=== PATIENT | female | born 1975 | race Two or more races ===

== ENCOUNTER 2023-08-15 11:41 | Outpatient (AMB) | payer MEDICARE, MEDICAID, SELFPAY ==
--- NOTE | 2023-08-15 11:43 | A.OFFVIS_ITS ---
Intake Vital Signs 08/15/23 11:47 Height 5 ft 1 in Weight 146 lb 4 oz BMI 27.6 BP 97/68 Blood Pressure Location Rt brachial Position Sitting Pulse 89 Pulse Source Pulse Oximeter Pulse Oximetry (%) 100 Oxygen Delivery Method Room Air Intake Visit Reasons: Follow up for Headaches-Confirmed Intake Note: Patient present today for headache follow up visit. Patient complains of increase forgetfulness. 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 Pt last seen by me in 2020 at [facility]. She had Covid-19 a second time, about a yr ago. Pt reports she is having increased difficulty with her memory. She needs help to take her medications, keep track of her appointments so she does not miss them. She states she is not recalling things she needs to do, just forgetting a lot of things. She does not recall anything specifically that has worsened her cognition. She states she never learned to write well, never completed school as she could never remember well. She is living with her son and dtr. She is having 3-4 days with headache, which lasts hours. The pain is in her temples and back of her head. The headache is a/w photophobia, phonophobia, some dizziness. Ibuprofen does not help. [facility] Medical History (Updated 08/15/23 @ 13:11 by TOSHA Hopkins) Anxiety Depression Lumbar spondylosis Review of Systems Const All systems reviewed & are unremarkable except as noted in HPI and below Physical Exam Vital Signs: Last Vital Signs Pulse 89 08/15/23 11:47 BP 97/68 08/15/23 11:47 Pulse Ox 100 08/15/23 11:47 Oxygen Delivery Method Room Air 08/15/23 11:47 BMI result Body Mass Index 27.6 Const General: cooperative and no acute distress HEENT Head: Yes normocephalic Resp Effort & Inspection: normal respiratory effort and able to speak in complete sentences Neuro Other: A&O, however on MMSE pt stated date was 08/14 vs 08/15, we are in [place] vs [place], 2nd floor vs 3rd. General: gait normal and CN's II-XI intact bilaterally Cognition (Neuro): normal cognition Motor exam (neuro): 5/5 motor strength present throughout Psych Appearance: grossly normal Mental Status: mental status grossly normal Speech and movement: Normal speech and movement present Affect: normal affect Attitude: cooperative Thought process: Normal thought process present Thought content: Normal thought content present Insight: Good insight present (Psych) Judgement: Good judgement present (Psych) Orientation What is the (year) (season) (date) (day) (month)?: year, date, day and month Where are we (state) (county) (town or city) (hospital) (floor)?: county, town or city and hospital/clinic Registration Name of 3 unrelated objects clearly and slowly, then ask patient to repeat all 3 of them. (1st repeat determines score. Make sure they can repeat all three): object 2 and object 3 Language Show patient a wristwatch & ask what it is. Repeat for pencil.: watch and pencil Ask the patient to 'take a piece of paper with their right hand' 'fold paper in half' 'place paper on floor': take paper in right hand, fold paper in half and place paper on floor Print the sentence 'CLOSE YOUR EYES' on a piece. If patient actually closes eyes then score.: followed written direction Give patient a blank piece of paper & ask to write a sentence. Score if it contains a noun & verb.: sentence contains subject and verb Score Score: 16 Assessment & Plan Assessment & Plan (1) Cognitive dysfunction: Code(s): F09 - Unspecified mental disorder due to known physiological condition (2) Limited literacy: Code(s): Z55.0 - Illiteracy and low-level literacy (3) Headache: Code(s): R51.9 - Headache, unspecified Plan MMSE 16 (repeat phrase omitted d/t Swedish speaking). Discussed that pt's cognitive difficulties may be multi-factorial- ? undiagnosed learning disorder, ? ADD, polypharmacy, mood disorder, pain/headache disorders. As pt is reporting more cognitive diffiuclties, will request f/u neuro-psych eval- last eval in 2019 was non-diagnostic as results were not deemed to be valid. For headache: Continue Amitriptyline 50mg qhs. Trial Sumatriptan 50-100mg prn. f/u in 6 months or sooner prn. Orders: Referrals Neuropsychiatry Referral F09 - Unspecified mental disorder due to known physiological condition, F32.A - Depression, unspecified, F41.9 - Anxiety disorder, unspecified, Z55.0 - Illiteracy and low-level literacy Medications: New sumatriptan succinate (0.5 - 1 x 100 mg) 50 - 100 mg orally at onset of headache, may repeat in 2 hrs PRN; max 2 tabs per day or 4 tabs/week (may take with Ibuprofen) 30 days 12 tabs 6RF migraine headache Coding Level of Care Code Est Pt Level 4 (51449) Diagnoses Cognitive dysfunction F09 Limited literacy Z55.0 Headache R51.9
[2023-08-15 11:47] VITALS: BP 97/68; PULSE 89; O2SAT 100; BMI 27.6
== END 2023-08-15 12:32 | disposition home or self-care (01) ==
PROVIDERS: Visit Provider Nurse Practitioner Family
DX: R41.89 Other symptoms and signs involving cognitive functions and awareness (principal); G44.201 Tension-type headache, unspecified, intractable; Z55.0 Illiteracy and low-level literacy
CPT/HCPCS: 99214

== ENCOUNTER → 2023-08-15 11:41 | Outpatient (BNVA) | payer MEDICARE, MEDICAID, SELFPAY | PROVIDERS: Visit Provider Nurse Practitioner Family | DX: F09 Unspecified mental disorder due to known physiological condition (principal); R51.9 Headache, unspecified; Z55.0 Illiteracy and low-level literacy | CPT/HCPCS: 99212 ==

== ENCOUNTER 2024-08-17 13:02 | Outpatient (REF) | payer MEDICARE, MEDICAID, SELFPAY | END 2024-08-17 13:03 | disposition home or self-care (01) | LOC: HO.HOSX 13:02 | PROVIDERS: Visit Provider Physician Assistant | DX: Z13.89 Encounter for screening for other disorder (principal) ==

== ENCOUNTER 2024-08-26 15:00 | Outpatient (AMB) | payer MEDICARE, MEDICAID, SELFPAY ==
--- NOTE | 2024-08-26 15:11 | MHC.OFFVIS ---
Vital Signs 08/26/24 15:15 Height 5 ft 1 in Weight 142 lb BMI 26.8 BP 98/68 Blood Pressure Location Lt brachial Position Sitting Pulse 79 Pulse Source Pulse Oximeter Pulse Oximetry (%) 100 Oxygen Delivery Method Room Air Intake Visit Reasons: Follow Up Safety And Health Consultant Required: No Accompanied by: Self / Same As Patient Allergies No Known Allergies Allergy (Verified 08/26/24 15:15) Medication List - Last Reconciled 08/26/24 by TOSHA Hopkins amitriptyline 50 mg PO BEDTIME doxepin 25 mg PO BEDTIME mirtazapine 15 mg PO BEDTIME sumatriptan succinate 50 - 100 mg orally at onset of headache, may repeat in 2 hrs PRN; max 2 tabs per day or 4 tabs/week (may take with Ibuprofen) 30 days trazodone 100 mg PO BEDTIME PRN Do you need a note to return to daycare/school/sports/work: No HPI Comments Details: 49-yr-old female presents for f/u visit, presents for f/u visit. Pt reports she has had more difficulty sleeping. She states sometimes she is prone to ruminating. She states she used to take a sleeping pill which helped- she states amitriptyline. She states she is not taking mirtazapine or doxepin. She also notes that she is post-menopausal x's 2.5 yrs- continues to have vasomotor s/s. She is f/b [facility] for her mood- which she states is stable. Pt reports she continues to have difficulties with her memory. S She needs help with anything written, to take her medications, keep track of her appointments so she does not miss them. She states she is not recalling things she needs to do, just forgetting a lot of things. She states she never learned to write well, never completed school as she could never remember well. She is living with her son and dtr. She is having 3-4 days with headache per week, which lasts hours. The pain is throbbing in her temples and back of her head. The headache is a/w photophobia, phonophobia, some dizziness. Ibuprofen does not help much. Sumatriptan was helpful- but needs a refill. She has had interval eye exam- states she has cataracts, and may need surgical tx. [facility] Medical History Anxiety Depression Lumbar spondylosis Physical Exam Vital Signs: Last Vital Signs Pulse 79 08/26/24 15:15 BP 98/68 08/26/24 15:15 Pulse Ox 100 08/26/24 15:15 Oxygen Delivery Method Room Air 08/26/24 15:15 BMI result Body Mass Index 26.8 Const General: cooperative and no acute distress HEENT Head: Yes normocephalic Resp Effort & Inspection: normal respiratory effort and able to speak in complete sentences Neuro Other: A&O w/ mild STM lapses General: gait normal and CN's II-XI intact bilaterally Cognition (Neuro): normal cognition Motor exam (neuro): 5/5 motor strength present throughout Psych Appearance: grossly normal Mental Status: mental status grossly normal Speech and movement: Normal speech and movement present Affect: normal affect Attitude: cooperative Assessment & Plan Assessment & Plan (1) Cognitive dysfunction: Code(s): F09 - Unspecified mental disorder due to known physiological condition Category: Medical (2) Limited literacy: Code(s): Z55.0 - Illiteracy and low-level literacy Category: Social Hx (3) Headache: Code(s): R51.9 - Headache, unspecified Category: Medical Plan For cognition- Continue to f/u Jeremy as scheduled. For migraine headache: Resume Amitriptyline at 25mg qhs- may help sleep and body pains as well. If ineffective, increase back to 50mg. Continue Sumatriptan 50-100mg prn. f/u in 6 months or sooner prn. Medications: New amitriptyline 25 mg PO BEDTIME 30 days 30 tabs 3RF Refilled sumatriptan succinate (0.5 - 1 x 100 mg) 50 - 100 mg orally at onset of headache, may repeat in 2 hrs PRN; max 2 tabs per day or 4 tabs/week (may take with Ibuprofen) 30 days 12 tabs 6RF migraine headache Coding Level of Care Code Est Pt Level 4 (27664) Diagnoses Cognitive dysfunction F09 Limited literacy Z55.0 Headache R51.9
[2024-08-26 15:15] VITALS: BP 98/68; PULSE 79; O2SAT 100; BMI 26.8
== END 2024-08-26 15:52 | disposition home or self-care (01) ==
LOC: HO.HSMS 15:00
PROVIDERS: Visit Provider Nurse Practitioner Family
DX: R41.89 Other symptoms and signs involving cognitive functions and awareness (principal); R51.9 Headache, unspecified; Z55.0 Illiteracy and low-level literacy
CPT/HCPCS: 99214

== ENCOUNTER → 2024-08-26 15:00 | Outpatient (BNVA) | payer MEDICARE, MEDICAID, SELFPAY | PROVIDERS: Visit Provider Nurse Practitioner Family | DX: F09 Unspecified mental disorder due to known physiological condition (principal); R41.89 Other symptoms and signs involving cognitive functions and awareness; R51.9 Headache, unspecified; Z55.9 Problems related to education and literacy, unspecified | CPT/HCPCS: 99212 ==

== ENCOUNTER 2024-09-23 09:18 | Outpatient (REF) | payer MEDICARE, MEDICAID, SELFPAY | END 2024-09-23 09:19 | disposition home or self-care (01) | LOC: HO.HOSX 09:18 | PROVIDERS: Visit Provider Physician Assistant | DX: Z13.89 Encounter for screening for other disorder (principal) ==

== ENCOUNTER 2024-11-01 09:22 | Outpatient (REF) | payer MEDICARE, MEDICAID, SELFPAY ==
--- NOTE | ~2024-11-01 | XR_ITS ---
CLINICAL HISTORY: M17.11 - Unilateral primary osteoarthritis, right knee AP standing bilateral and two-view right knee Comparison: DX - XR KNEE LT 3V - 11/01/24 10:46 EST Findings: No significant osteophyte formation. No fracture. There appears to be mild lateral subluxation of the tibia in relation to the knee joint. Joint spaces appear relatively well maintained. IMPRESSION: 1. Slight lateral subluxation of the tibia without significant osteophyte formation or joint space loss. This document has been electronically signed by: Batsheva Richardson MD on 11/03/2024 06:50:23
--- NOTE | ~2024-11-01 | XR_ITS ---
CLINICAL HISTORY: M25.562 - Pain in left knee 3 view left knee Comparison: None Findings: No fracture or aggressive lesion. No joint effusion. Medial compartment joint space loss with subchondral sclerosis and mild lateral subluxation. IMPRESSION: 1. Medial compartment degenerative changes with mild lateral subluxation. This document has been electronically signed by: Batsheva Richardson MD on 11/03/2024 06:50:53
== END 2024-11-01 09:23 | disposition home or self-care (01) ==
LOC: HO.HOSX 09:22
PROVIDERS: Visit Provider Physician Assistant
DX: M17.11 Unilateral primary osteoarthritis, right knee (principal); M25.562 Pain in left knee; M25.561 Pain in right knee
CPT/HCPCS: 73562; 99202

== ENCOUNTER 2024-11-01 10:37 | Outpatient (AMB) | payer MEDICARE, MEDICAID, SELFPAY ==
[2024-11-01 10:54] VITALS: BMI 26.8
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
== END 2024-11-01 11:38 | disposition home or self-care (01) ==
PROVIDERS: Visit Provider Physician Assistant
DX: M17.0 Bilateral primary osteoarthritis of knee (principal); M92.50 Unspecified juvenile osteochondrosis of tibia and fibula
CPT/HCPCS: 99203; G2211

== ENCOUNTER 2024-11-04 19:23 | Outpatient (REF) | payer MEDICARE, MEDICAID, SELFPAY ==
--- NOTE | ~2024-11-04 | MR_ITS ---
EXAMINATION: MRI LEFT KNEE WITHOUT CONTRAST HISTORY: M17.12 - Unilateral primary osteoarthritis, left knee COMPARISON: Correlation is made with plain films of the left knee dated 11/01/2024. TECHNIQUE: Coronal T1 and fat-suppressed proton density, sagittal proton density and fat-suppressed proton density, and axial fat suppressed T2 weighted MR images of the left knee were obtained. FINDINGS: There is a focus of magnetic susceptibility artifact at the posterior aspect of the medial tibial plateau, which is likely postsurgical in nature. Bone marrow signal intensity is normal. There is a small suprapatellar joint effusion. There is no Christie's cyst. There is moderate cartilage loss involving the medial compartment with associated small osteophyte formation. There is thinning of the patellar cartilage, particularly involving the medial patellar facet. The anterior and posterior cruciate ligaments and medial and lateral collateral ligaments are intact. The posterior horn of the medial meniscus is diminutive in size and slightly irregular in shape, which may be postsurgical in nature. There is a horizontally oriented linear focus of increased signal intensity in the posterior body which contacts the inferior joint surface, compatible with a tear. There is increased signal intensity within the anterior horn of the lateral meniscus, consistent with degeneration. This appears to contact the inferior joint surface, suspicious for a tear. The posterior horn of the lateral meniscus is intact. The patellar and quadriceps tendons and patellar retinacula are unremarkable in appearance. The popliteus tendon is intact. MR/MR knee LT wo con IMPRESSION: 1. Small joint effusion. Moderate osteoarthritis of the medial compartment. Mild to moderate osteoarthritis of the patellofemoral compartment. 2. Probable postsurgical changes involving the posterior horn of the medial meniscus. Clinical correlation is recommended. Findings consistent with a horizontal tear of the posterior body of the medial meniscus. 3. Degenerative change in the anterior horn of the lateral meniscus with a probable tear as described. Electronically signed by: Oleksandr Irene MD 11/05/2024 08:16 AM [facility]
--- NOTE | ~2024-11-04 | MR_ITS ---
CLINICAL HISTORY: M17.11 - Unilateral primary osteoarthritis, right knee MR right knee without gadolinium Comparison: None Findings: No acute fracture or pathologic bone lesion. Moderate-size simple joint effusion . There is increased signal in the anteromedial bundle of the ACL suggesting a partial-thickness tear. Cruciate and collateral ligaments are otherwise intact. No disruption of the patellar retinacula or iliotibial band. No tears of the quadriceps, patellar, popliteus, or flexor tendons. There is a tear of the posterior horn medial meniscus extending from the periphery to the inferior articular surface peripherally. The menisci are otherwise intact. There is a small Christie's cyst with edema extending cephalad raising possibility of cyst rupture. IMPRESSION: 1. Posterior horn medial meniscal tear. 2. Partial-thickness ACL tear. 3. Possible ruptured Christie's cyst. This document has been electronically signed by: Pa Casper MD on 11/06/2024 08:19:55
== END 2024-11-04 19:24 | disposition home or self-care (01) ==
LOC: HO.MRI 19:23
PROVIDERS: Visit Provider Physician Assistant
DX: M17.12 Unilateral primary osteoarthritis, left knee (principal); M17.11 Unilateral primary osteoarthritis, right knee
CPT/HCPCS: 73721

== ENCOUNTER → 2024-11-04 19:32 | Outpatient (BNV) | payer MEDICARE, MEDICAID, SELFPAY | PROVIDERS: Visit Provider Radiology Diagnostic Radiology | DX: M17.12 Unilateral primary osteoarthritis, left knee (principal) | CPT/HCPCS: 73721 ==

== ENCOUNTER 2024-12-28 13:52 | Outpatient (AMB) | payer MEDICARE, MEDICAID, SELFPAY ==
--- NOTE | 2024-12-28 13:57 | A.OFFVIS_ITS ---
Intake Visit Reasons: Tel- B/L knee MRI review Intake Note: Katja 49 yr old Citizen Of [place] speaker female presents via phone call for a telehealth visit for her knee MRI. Allergies No Known Allergies Allergy (Verified 11/01/24 10:54) Medication List - Last Reconciled 12/28/24 by Ari Levy PA-C amitriptyline 25 mg PO BEDTIME 30 days doxepin 25 mg PO BEDTIME mirtazapine 15 mg PO BEDTIME sumatriptan succinate 50 - 100 mg orally at onset of headache, may repeat in 2 hrs PRN; max 2 tabs per day or 4 tabs/week (may take with Ibuprofen) 30 days trazodone 100 mg PO BEDTIME PRN HPI HPI Tel- B/L knee MRI review: Details: 49 yo female presents for telehealth visit bilat knee MRI. She continues to have pain with daily activities, right worse than left. The right she feels like it will give out. She was measured for medial scientific diver braces. but has yet to receive them. 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 Review of Systems Const All systems reviewed & are unremarkable except as noted in HPI and below Physical Exam Resp Effort & Inspection: normal respiratory effort and able to speak in complete sentences Telehealth Telehealth Telehealth Platform: Telephone Location of provider rendering services: practice address Location of patient: address on file Telehealth method: voice only Patient verbally consented to treatment: Yes Patient verbally consented to billing insurance company: Yes Patient informed of any privacy concerns related to visit: Yes Minutes spent on Phone/Video with Pt.: 15 Results Reviewed Results Reviewed: MRI RIght knee IMPRESSION: 1. Posterior horn medial meniscal tear. 2. Partial-thickness ACL tear. 3. Possible ruptured Christie's cyst. MR knee LT wo con IMPRESSION: 1. Small joint effusion. Moderate osteoarthritis of the medial compartment. Mild to moderate osteoarthritis of the patellofemoral compartment. 2. Probable postsurgical changes involving the posterior horn of the medial meniscus. Clinical correlation is recommended. Findings consistent with a horizontal tear of the posterior body of the medial meniscus. 3. Degenerative change in the anterior horn of the lateral meniscus with a probable tear as described. Assessment & Plan Assessment & Plan (1) Osteoarthritis of knees, bilateral: Code(s): M17.0 - Bilateral primary osteoarthritis of knee Category: Medical (2) Varus deformity of both tibias: Code(s): M92.503 - Unspecified juvenile osteochondrosis, bilateral leg Category: Medical Plan I discussed the extent of the findings on MRI with the patient. She continues to express her frustration with her continued pain and limitations with activity. She states it is causing her to feel depressed about where she is at and how limited she feels being unable to carry on with her life due to the pain. I explained to the patient I will discuss further with Dr. Vazquez to see what options we have whether it be continued nonsurgical versus surgical approach. Patient is content with this plan and I will contact her to proceed. Coding Level of Care Code Tele Est Pt Level 3 (16746) Complex EM visit Add On G2211 Diagnoses Osteoarthritis of knees, bilateral M17.0 Varus deformity of both tibias M92.503
--- OUTSIDE RECORDS SUMMARY | 2024-12-28 16:52 | XMS_ITS | Clinical Summary ---
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 Name Role Phone Unavailable Primary Care Provider Unavailabl e Social History Tobacco Use Types Packs/Day Years Used Date Smoking Tobacco: Never Assessed Comments Unknown Sex and Gender Information Value Date Recorded Sex Assigned at Not on file Legal Sex Female 10:52 AM EST Gender Identity Not on file Sexual Orientation Not on file Plan of Treatment Health Maintenance Due Date Last Done Comments Breast Cancer Screening 1975 DTaP,Tdap,and Td Vaccines (1 - Tdap) 1994 Hepatitis B Vaccines (1 of 3 - 19+ 3-dose series) 1994 Cervical Cancer Screening: P ap Smear 1996 Colorectal Cancer Screening: Colonoscopy 09/17/2022 Depression Screening 09/17/2022 HIV Screening 09/17/2022 Hepatitis C Screening 09/17/2022 Social Influencers of Health Screening 09/17/2022 COVID-19 Vaccine (2023-2 5 season) 2024 Influenza Vaccine (#1) 2024 HIB Vaccines Aged Out No longer eligi ble based on patient's age to complete this topic HPV Vaccines Aged Out No longer eligi ble based on patient's age to complete this topic Hepatitis A Vaccines Aged Out No long er eligible based on patient's age to complete this topic IPV Vaccines Aged Out No longer eligi ble based on patient's age to complete this topic MMR Vaccines Aged Out No longer eligi ble based on patient's age to complete this topic Meningococcal ACWY Vaccine Aged Out N o longer eligible based on patient's age to complete this topic Meningococcal B Vacine Aged Out No lo nger eligible based on patient's age to complete this topic Pneumococcal Vaccine: Pediat rics (0 to 5 Years) and At-Risk Patients (6 to 64 Years) Aged Out No longer eligible b ased on patient's age to complete this topic RSV Immunization Patients Un rosa elena 20 months Aged Out No longer eligible b ased on patient's age to complete this topic Varicella Vaccines Aged Out No longer eligible based on patient's age to complete this topic
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
== END 2024-12-28 14:29 | disposition home or self-care (01) ==
LOC: HO.HOS 13:52
PROVIDERS: Visit Provider Physician Assistant
DX: M17.0 Bilateral primary osteoarthritis of knee (principal); M92.50 Unspecified juvenile osteochondrosis of tibia and fibula
CPT/HCPCS: 99213; G2211

== ENCOUNTER 2025-01-17 13:10 | Outpatient (AMB) | payer MEDICARE, MEDICAID, SELFPAY ==
[2025-01-17 13:14] VITALS: BMI 26.8
--- NOTE | 2025-01-17 13:14 | A.OFFVIS_ITS ---
Vital Signs 01/17/25 13:14 Height 5 ft 1 in Weight 142 lb BMI 26.8 Intake Visit Reasons: OV- B/L knee pain f/u Intake Note: Katja is a 49 year old female who presents today for a follow up of bilateral knee OA. Patient is here to discuss her options, whether continued nonsurgical versus surgical approach. Allergies No Known Allergies Allergy (Verified 01/17/25 13:14) Medication List - Last Reconciled 01/17/25 by Ari Levy PA-C amitriptyline 25 mg PO BEDTIME 30 days doxepin 25 mg PO BEDTIME mirtazapine 15 mg PO BEDTIME sumatriptan succinate 50 - 100 mg orally at onset of headache, may repeat in 2 hrs PRN; max 2 tabs per day or 4 tabs/week (may take with Ibuprofen) 30 days trazodone 100 mg PO BEDTIME PRN HPI HPI OV- B/L knee pain f/u: Details: 49-year-old female returns to the office today for ongoing bilateral knee pain right greater than left. She continues to have medial and lateral-sided joint pain and instability when ambulating. 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 No joint effusion. She has full range of motion. She has varus deformity. She has 1+ laxity bilaterally. Neurovascularly intact Assessment & Plan Assessment & Plan (1) Osteoarthritis of knees, bilateral: Code(s): M17.0 - Bilateral primary osteoarthritis of knee Category: Medical (2) Varus deformity of both tibias: Code(s): M92.503 - Unspecified juvenile osteochondrosis, bilateral leg Category: Medical Plan Dr. Vazquez was available to see the patient with me today. We discussed options today which include arthroscopic versus total knee arthroplasty. Given that she has had prior surgery elsewhere it would be ideal to have those operative notes before proceeding with a definitive treatment course. Once these are obtained we will contact her to discuss the next step in her treatment. Coding Level of Care Code Est Pt Level 3 (52117) Complex EM visit Add On G2211 Diagnoses Osteoarthritis of knees, bilateral M17.0 Varus deformity of both tibias M92.503
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
--- OUTSIDE RECORDS SUMMARY | 2025-01-17 14:52 | XMS_ITS | Clinical Summary ---
Author Organization [employer] [facility] ity Address [address] [place] [address] Care Team Providers Care Scaler Name Role Phone Unavailable Primary Care Provider Unavailabl e Social History Tobacco Use Types Packs/Day Years Used Date Smoking Tobacco: Never Assessed Comments Unknown Sex and Gender Information Value Date Recorded Sex Assigned at Not on file Legal Sex Female 10:52 AM EST Gender Identity Not on file Sexual Orientation Not on file Plan of Treatment Health Maintenance Due Date Last Done Comments Hepatitis B Vaccines (1 of 3 - 19+ 3-dose series) 1994 Cervical Cancer Screening: Pap Smear 1996 Colorectal Cancer Screening: Colonoscopy 09/17/2022 Social Influencers of Health Screening 09/17/2022 COVID-19 Vaccine ( season) 2024 09/06/2021, 08/16/2021 Influenza Vaccine (#1) 2024 08/07/2021 Depression Screening 07/14/2025 07/14/2024 Breast Cancer Screening 12/24/2025 12/25/2023 Cholesterol Screening (Lipid Panel) 07/14/2029 07/14/2024, 07/14/2024, 03/27/2023, Additional history exists DTaP,Tdap,and Td Vaccines (3 - Td or Tdap) 01/01/2032 12/31/2021, 08/07/2021 HIV Screening Completed 04/08/2019 Hepatitis C Screening Completed 03/29/2021 Pneumococcal Vaccine: Pediatrics (0 to 5 Years) and At-Risk Patients (6 to 64 Years) Aged Out 08/07/2021 No longer eligible based on patient's age to complete this topic HIB Vaccines Aged Out No longer eligi [...] to complete this topic RSV Immunization Patients Under 20 months Aged Out No longer eligible based on patient's age to complete this topic Varicella Vaccines Aged Out No longer eligible based on patient's age to complete this topic
== END 2025-01-17 13:38 | disposition home or self-care (01) ==
LOC: HO.HOS 13:11
PROVIDERS: Visit Provider Physician Assistant
DX: M17.0 Bilateral primary osteoarthritis of knee (principal); M92.50 Unspecified juvenile osteochondrosis of tibia and fibula
CPT/HCPCS: 99213; G2211

== ENCOUNTER → 2025-01-17 13:10 | Outpatient (BNVA) | payer MEDICARE, MEDICAID, SELFPAY | PROVIDERS: Visit Provider Physician Assistant | DX: M17.0 Bilateral primary osteoarthritis of knee (principal); M92.50 Unspecified juvenile osteochondrosis of tibia and fibula | CPT/HCPCS: 99212 ==

== ENCOUNTER 2025-02-17 12:21 | Outpatient (AMB) | payer MEDICARE, MEDICAID, SELFPAY ==
--- NOTE | 2025-02-17 13:25 | A.OFFVIS_ITS ---
Vital Signs 02/17/25 13:28 Height 5 ft 1 in Weight 144 lb BMI 27.2 BP 110/72 Blood Pressure Location Rt brachial Position Sitting Pulse 82 Pulse Source Pulse Oximeter Pulse Oximetry (%) 99 Oxygen Delivery Method Room Air Intake Visit Reasons: 6 mo follow up Intake Note: Patient presents 6 month follow up for Migraines/Cognitive Yeast Tender Required: No Accompanied by: Self / Same As Patient Allergies asprin Allergy (Mild, Uncoded 02/17/25 13:30) Rash Medication List - Last Reconciled 02/17/25 by TOSHA Hopkins amitriptyline 25 mg PO BEDTIME 30 days doxepin 25 mg PO BEDTIME mirtazapine 15 mg PO BEDTIME sumatriptan succinate 50 - 100 mg orally at onset of headache, may repeat in 2 hrs PRN; max 2 tabs per day or 4 tabs/week (may take with Ibuprofen) 30 days trazodone 100 mg PO BEDTIME PRN HPI Comments Details: 49-yr-old female presents for f/u visit for migraine and cognitive disorders. Patient reports she never received the amitriptyline and sumatriptan after last visit. She thinks this is due to her previous pharmacy closing. She is currently having 1-2 migraine days per week, which lasts hours. Typical migraine characteristics: throbbing in her temples and back of her head. The headache is a/w photophobia, phonophobia, some dizziness. Ibuprofen does not help much. Sumatriptan was helpful- but needs a refill. Pt reports she has had more difficulty sleeping. States she used to sleep better with Amitriptyline. Pt reports she continues to have difficulties with her memory. She needs help with anything written, to take her medications, keep track of her appointments so she does not miss them. She states she is not recalling things she needs to do, forgetting a lot of things. She states she is prone to progress donation and running late. She is easily distracted. She denies clear hyperactivity. She states she never learned to write well, stopped going to school at 7 or 8th grade, as she could never remember well. She previously had neuropsychological evaluation, however the testing was inconclusive. She is living with her son and dtr. She is f/b [facility] for her mood- which she states is stable. 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 Physical Exam Vital Signs: Last Vital Signs Pulse 82 02/17/25 13:28 BP 110/72 02/17/25 13:28 Pulse Ox 99 02/17/25 13:28 Oxygen Delivery Method Room Air 02/17/25 13:28 BMI result Body Mass Index 27.2 Const General: cooperative and no acute distress HEENT Head: Yes normocephalic Resp Effort & Inspection: normal respiratory effort and able to speak in complete sentences Neuro Other: A&O w/ mild STM lapses General: gait normal and CN's II-XI intact bilaterally Cognition (Neuro): normal cognition Motor exam (neuro): 5/5 motor strength present throughout Psych Appearance: grossly normal Mental Status: mental status grossly normal Speech and movement: Normal speech and movement present Affect: normal affect Attitude: cooperative Assessment & Plan Assessment & Plan (1) Cognitive dysfunction: Code(s): F09 - Unspecified mental disorder due to known physiological condition Category: Medical (2) Limited literacy: Code(s): Z55.0 - Illiteracy and low-level literacy Category: Social Hx (3) Headache: Code(s): R51.9 - Headache, unspecified Category: Medical Plan For cognition- We will request COUNTER STITCHER eval and treat for cognitive difficulties. Previous neuropsych evaluation was nondiagnostic. Continue to f/u Jeremy as scheduled. Future considerations: Bupropion for neurostimulation if psychiatrist were in agreement. For migraine headache: Resume Amitriptyline at 25mg qhs- may help sleep and body pains as well. If ineffective, increase back to 50mg. Trial Sumatriptan 100mg tab, 1/2 - 1 tab (50-100mg) at onset of headache, may repeat in 2 hours. Max of 2 tabs (200mg) per 24 hours. Resume sumatriptan with OTC Tylenol 650-1,000mg every 4-6 hours, Ibuprofen (li quid gels) 600mg every 6 hours, or Naproxen (liquid gels) 440mg q 12 hrs prn. f/u in 6 months or sooner prn. Orders: Referrals Speech and Hearing Referral F09 - Unspecified mental disorder due to known physiological condition, Z55.0 - Illiteracy and low-level literacy Medications: Refilled amitriptyline 25 mg PO BEDTIME 30 days 30 tabs 3RF sumatriptan succinate (0.5 - 1 x 100 mg) 50 - 100 mg orally at onset of headache, may repeat in 2 hrs PRN; max 2 tabs per day or 4 tabs/week (may take with Ibuprofen) 30 days 12 tabs 6RF migraine headache Coding Level of Care Code Est Pt Level 4 (81618) Diagnoses Cognitive dysfunction F09 Limited literacy Z55.0 Headache R51.9
[2025-02-17 13:28] VITALS: BP 110/72; PULSE 82; O2SAT 99; BMI 27.2
--- OUTSIDE RECORDS SUMMARY | 2025-02-17 14:25 | XMS_ITS | Clinical Summary ---
Author Organization [facility] ity Address [address] [place] [address] Care Team Providers Care Surgery Scheduling Coordinator Name Role Phone Unavailable Primary Care Provider [...] ( season) 2024 09/06/2021, 08/16/2021 Influenza Vaccine (Season Ended) 2025 08/07/2021 Depression Screening 07/14/2025 07/14/2024 Breast Cancer [...] age to complete this topic Meningococcal B Vaccine Aged Out No l onger eligible based on patient's age to complete this topic RSV Immunization Patients Under 20 months Aged Out No longer eligible based on patient's age to complete this topic Varicella Vaccines Aged Out No longer eligible based on patient's age to complete this topic
== END 2025-02-17 14:05 | disposition home or self-care (01) ==
LOC: HO.HSMS 12:22
PROVIDERS: Visit Provider Nurse Practitioner Family
DX: R41.89 Other symptoms and signs involving cognitive functions and awareness (principal); Z55.0 Illiteracy and low-level literacy; R51.9 Headache, unspecified
CPT/HCPCS: 99214

== ENCOUNTER → 2025-02-17 12:21 | Outpatient (BNVA) | payer MEDICARE, MEDICAID, SELFPAY | PROVIDERS: Visit Provider Nurse Practitioner Family | DX: R51.9 Headache, unspecified (principal); F09 Unspecified mental disorder due to known physiological condition; Z55.0 Illiteracy and low-level literacy | CPT/HCPCS: 99212 ==

== ENCOUNTER 2025-03-10 15:21 | Outpatient (AMB) | payer MEDICARE, MEDICAID, SELFPAY ==
--- OUTSIDE RECORDS SUMMARY | 2025-03-10 15:23 | XMS_ITS | Clinical Summary ---
Author Organization [facility] ity Address [address] [place] [address] Care Team Providers Care Instructor Industrial Design Name Role Phone Unavailable Primary Care Provider [...]
--- NOTE | 2025-03-10 15:24 | MHC.OFFVIS ---
Intake Visit Reasons: OV - Bilateral Knee Pain Intake Note: This is a 49 year old female who presents for bilateral knee pain. 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 Posterior horn medial meniscal tear. 2. Partial-thickness ACL tear. 3. Possible ruptured Christie's cyst. Assessment & Plan Assessment & Plan (1) Varus deformity of both tibias: Code(s): M92.503 - Unspecified juvenile osteochondrosis, bilateral leg Category: Medical (2) Osteoarthritis of knees, bilateral: Code(s): M17.0 - Bilateral primary osteoarthritis of knee Category: Medical (3) Degenerative tear of meniscus of right knee: Code(s): M23.306 - Other meniscus derangements, unspecified meniscus, right knee Category: Medical Plan I had a lengthy discussion with the patient today about the results of her right knee MRI and options available. I previously reviewed the MRI with Dr. Vazquez and the decision was made to offer the patient a right knee arthroscopy for a partial medial meniscectomy and possible chondroplasty. The patient is extremely concerned about the bilateral deformity of her knees and the instability she experiences on a daily basis. She states this causes her severe depression. I explained to the patient given her age and the fact that we have not exhausted all conservative measures a knee replacement would be extremely aggressive at this time. I reassured her with a knee arthroscopy and the medial steel unloader braces she received today this may help prolong the longevity of her lower [place] knee and delay the need for a knee replacement. We could also consider occasional steroid injections. The patient is adamant she does not want a knee arthroscopy as it will only delay the inevitable. She is concerned that this will not help her deformity which I did agree with. However; that is what the braces are for. She expressed interest in meeting with Dr. Vazquez to discuss this further. At the end of the visit the decision was made for her to meet with Dr. Vazquez to discuss right knee arthroscopy versus total knee arthroplasty. Coding Level of Care Code Est Pt Level 3 (66756) Complex EM visit Add On G2211 Diagnoses Varus deformity of both tibias M92.503 Osteoarthritis of knees, bilateral M17.0 Degenerative tear of meniscus of right knee M23.306
== END 2025-03-10 15:55 | disposition home or self-care (01) ==
LOC: HO.HOS 15:21
PROVIDERS: Visit Provider Physician Assistant
DX: M92.50 Unspecified juvenile osteochondrosis of tibia and fibula (principal); M17.0 Bilateral primary osteoarthritis of knee; M23.306 Other meniscus derangements, unspecified meniscus, right knee
CPT/HCPCS: 99213; G2211

== ENCOUNTER → 2025-03-10 15:21 | Outpatient (BNVA) | payer MEDICARE, MEDICAID, SELFPAY | PROVIDERS: Visit Provider Physician Assistant | DX: M17.0 Bilateral primary osteoarthritis of knee (principal); M92.50 Unspecified juvenile osteochondrosis of tibia and fibula; M23.306 Other meniscus derangements, unspecified meniscus, right knee | CPT/HCPCS: 99212 ==

== ENCOUNTER 2025-05-05 11:29 | Outpatient (AMB) | payer MEDICARE, MEDICAID, SELFPAY ==
--- NOTE | 2025-05-05 11:32 | A.OFFVIS_ITS ---
Intake Visit Reasons: OV - Right Knee - Discuss Surgery Intake Note: Katja is a 49 year old female who presents today for a follow up of her Right Knee OA, Valgus Deformity and Meniscus Tear. She was last seen with Ari who ordered unloading braces for the patient and discussed possible surgical interventions. Today the patient presents to further discuss Knee Arthroscopy ( Partial medial menisectomy & Chondroplasty vs TKA. Patient is adamant that she does not want an arthroscopy as she feels like it its just delaying the inevitable and not addressing her deformity. Allergies asprin Allergy (Mild, Uncoded 02/17/25 13:30) Rash HPI HPI OV - Right Knee - Discuss Surgery: Details: Katja is a 49 year old female who presents today for a follow up of her Right Knee OA, Valgus Deformity and Meniscus Tear. She was last seen with Ari who ordered unloading braces for the patient and discussed possible surgical interventions. Today the patient presents to further discuss Knee Arthroscopy ( Partial medial menisectomy & Chondroplasty vs TKA. Patient is adamant that she does not want an arthroscopy as she feels like it its just delaying the inevitable and not addressing her deformity. She states that the unloading brace has been difficult for her to wear as it pinches or skin significantly. She has underlying moderate varus deformity and the unloading braces not effective for her. She comes in today again with questions regarding arthroscopy versus arthroplasty. 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 Her right knee is tender along the joint line she does have a positive medial Nathan's. Results Reviewed Results Reviewed: I personally reviewed relevant radiographs. Radiographs demonstrate varus malalignment of the right knee with [id number] arthritic changes. Assessment & Plan Assessment & Plan (1) Degenerative tear of meniscus of right knee: Code(s): M23.306 - Other meniscus derangements, unspecified meniscus, right knee Category: Medical Plan: This is a 50-year-old woman with varus alignment of bilateral knees. Her radiographs and demonstrate mild OA. Her MRI shows a degenerative medial meniscus tear. Most her pain is medial along the joint line with a positive medial Nathan's. This is a difficult situation because she ultimately would benefit from arthroplasty but I think given her age I would try to ameliorate her symptoms with partial meniscectomy. I discussed this rationale for her and I think we should start off with the smallest surgery possible to see if we can prolonged arthroplasty for at least a couple of years. It is possible that this will be minimally helpful for for her however and we will proceed to arthroplasty depending on the intraoperative findings and how she does. I discussed the risks of knee arthroscopy including, but not limited to, incomplete symptom resolution, pain, stiffness, infection as well as medical complications associated with surgery. This is a low risk surgery however and she is healthy. She expressed understanding and we will proceed forward accordingly. (2) Varus deformity of both tibias: Code(s): M92.503 - Unspecified juvenile osteochondrosis, bilateral leg Category: Medical Plan: Underlying varus abnormality that is mostly tibial and congenital. Coding Level of Care Code Est Pt Level 4 (38212) Diagnoses Degenerative tear of meniscus of right knee M23.306 Varus deformity of both tibias M92.503
--- OUTSIDE RECORDS SUMMARY | 2025-05-05 12:19 | XMS_ITS | Clinical Summary ---
Author Organization [facility] Address [address] [place] [address] Phone Care Team Providers Care Meat Inspector Name Role Phone Unavailable Primary Care Provider Unavailabl e Allergies Active Allergy Reactions Criticality Noted Date Comments Aspirin Nausea And Vomiting 04/14/2025 Encounters Date Type Department Care Team Description 04/14/2025 4:32 PM EDT - 04/15/2025 1:59 AM EDT Emergency [facility] Emergency [address] [place] [address] Discharge Disposition: Left Against Medical Advice from Last 3 Months Medical History Medical History Date Comments Depression Arthritis Social History Tobacco Use Types Packs/Day Years Used Date Smoking Tobacco: Never Smokeless Tobacco: Never Tobacco Cessation:Counseling Given: Not Answered Comments Unknown Sex and Gender Information Value Date Recorded Sex Assigned at Not on file Legal Sex Female 10:52 AM EST Gender Identity Not on file Sexual Orientation Not on file Obstetrics History Last Filed Vital Signs Vital Sign Reading Time Taken Comments Blood Pressure 122/76 04/14/2025 9:37 PM EDT Pulse 87 04/14/2025 9:37 PM EDT Temperature 36.6 C (97.9 F) 04/14/2025 9:37 PM EDT Respiratory Rate 18 04/14/2025 9:37 PM EDT Oxygen Saturation 100% 04/14/2025 9:37 PM EDT Inhaled Oxygen Concentration - - Weight 67.1 kg (148 lb) 04/14/2025 4:37 PM EDT Height 154.9 cm (5' 1 ) 04/14/2025 4:37 PM EDT Body Mass Index 27.96 04/14/2025 4:37 PM EDT Plan of Treatment Health Maintenance Due Date Last Done Comments Hepatitis B Vaccines (1 of 3 - 19+ 3-dose series) 1994 Cervical Cancer Screening: Pap Smear 1996 Colorectal Cancer Screening: Colonoscopy 09/17/2022 Medicare Annual Wellness Visit 09/17/2022 Social Influencers of Health Screening 09/17/2022 COVID-19 Vaccine ( season) 2024 09/06/2021, 08/16/2021 Influenza Vaccine (#1) 2025 08/07/2021 Depression Screening 07/14/2025 07/14/2024 Breast Cancer Screening 12/24/2025 12/25/2023 Cholesterol Screening (Lipid Panel) 07/14/2029 07/14/2024, 07/14/2024, 03/27/2023, Additional history exists DTaP,Tdap,and Td Vaccines (3 - Td or Tdap) 01/01/2032 12/31/2021, 08/07/2021 HIV Screening Completed 04/08/2019 Hepatitis C Screening Completed 03/29/2021 Pneumococcal Vaccine: Pediatrics (0 to 5 Years) and At-Risk Patients (6 to 49 Years) Aged Out 08/07/2021 No longer eligible [...] on patient's age to complete this topic Procedures Procedure Name Priority Date/Time Associated Diagnosis Comments CBC WITH AUTO DIFFERENTIAL STAT 04/14/2025 9:36 PM EDT MAGNESIUM STAT 04/14/2025 9:36 PM EDT BASIC METABOLIC PANEL STAT 04/14/2025 9:36 PM EDT CBC AND DIFFERENTIAL STAT 04/14/2025 9:36 PM EDT from Last 3 Months Results * (ABNORMAL) CBC auto differential (04/14/2025 9:36 PM EDT) [facility] WBC 9.2 4.8 - 10.8 K/mcL LAB HEMETOLOGY METHOD 04/14/2025 10:10 PM EDT [facility] RBC 4.70 3.80 - 4.80 M/mcL LAB HEMETOLOGY METHOD 04/14/2025 10:10 PM EDT [facility] Hemoglobin 13.1 11.5 - 16.0 g/dL LAB HEMETOLOGY METHOD 04/14/2025 10:10 PM EDT [facility] Hematocrit 41.4 35.0 - 47.0 % LAB HEMETOLOGY METHOD 04/14/2025 10:10 PM EDT [facility] MCV 89.0 79.0 - 98.0 FL LAB HEMETOLOGY METHOD 04/14/2025 10:10 PM EDT [facility] MCH 28.2 27.0 - 32.0 pcg LAB [facility]OLOGY [facility] MCHC 31.6(L) 32.0 - 37.0 g/dL LAB HEMETOLOGY METHOD 04/14/2025 10:10 PM EDT [facility] RDW 12.7 11.0 - 15.0 % LAB HEMETOLOGY METHOD 04/14/2025 10:10 PM EDT [facility] Platelets 304 130 - 400 K/mcL LAB HEMETOLOGY METHOD 04/14/2025 10:10 PM EDT [facility] MPV 10.6 7.0 - 11.0 FL LAB HEMETOLOGY METHOD 04/14/2025 10:10 PM EDT [facility] NRBC 0.0 <1.0 % LAB HEMETOLOGY METHOD 04/14/2025 10:10 PM EDT [facility] NRBC Absolute 0.00 <0.10 K/mcL LAB HEMETOLOGY METHOD [facility] Neutrophils Relative 59.0 % LAB HEMETOLOGY METHOD 04/14/2025 10:10 PM EDT [facility] Lymphocytes Relative 31.5 % LAB HEMETOLOGY METHOD [facility] Monocytes Relative 5.7 % LAB HEMETOLOGY METHOD 04/14/2025 10:10 PM [facility] Eosinophils Relative 2.9 % LAB HEMETOLOGY METHOD 04/14/2025 10:10 PM [facility] Basophils Relative 0.3 % LAB HEMETOLOGY METHOD 04/14/2025 10:10 PM [facility] Immature Granulocytes Relative 0.6 % LAB HEMETOLOGY METHOD 04/14/2025 10:10 PM [facility] Neutrophils Absolute 5.44 1.50 - 7.00 K/mcL LAB HEMETOLOGY METHOD 04/14/2025 10:10 PM [facility] Lymphocytes Absolute 2.91 1.00 - 5.00 K/mcL LAB HEMETOLOGY METHOD [facility] Monocytes Absolute 0.53 0.20 - 1.00 K/mcL LAB HEMETOLOGY METHOD 04/14[facility]2025 [facility] Eosinophils Absolute 0.27 0.00 - 0.50 K/mcL LAB HEMETOLOGY METHOD 04/14[facility]2025 [facility] Basophils Absolute 0.03 0.00 - 0.20 K/mcL LAB HEMETOLOGY METHOD 04/14/2025 10:10 PM EDT [facility] Immature Granulocytes Absolute 0.06(H) 0.00 - 0.03 K/mcL LAB HEMETOLOGY METHOD 04/14/2025 10:10 PM EDT [facility] Blood Venous blood specimen / Unknown Venipuncture / Unknown 04/14/2025 9:36 PM EDT 04/14/2025 10:01 PM EDT Abdelrahman Handy MD LAB BLOOD ORDERABLES Final Resu lt [facility] [address] [place] [address], [place] [phone] * Magnesium (04/14/2025 9:36 PM EDT) Magnesium 2.2 1.9 - 2.6 mg/dL LAB CHEMISTRY METHOD 04/14/2025 10:32 PM EDT [facility] Blood Venous blood specimen / Unknown Venipuncture / Unknown 04/14/2025 9:36 PM EDT 04/14/2025 10:01 PM EDT Abdelrahman Handy MD LAB BLOOD ORDERABLES Final Resu lt Performing Organization Address City/[facility]/ZIP Co de Phone Number [facility] [address] [place] [address], [place] [phone] * Basic metabolic panel (04/14/2025 9:36 PM EDT) Sodium 140 133 - 145 mmol/L LAB CHEMISTRY METHOD 04/14/2025 10:32 PM EDT [facility] Potassium 4.2 3.5 - 5.5 mmol/L LAB CHEMISTRY METHOD 04/14/2025 10:32 PM EDT [facility] Chloride 108 96 - 110 mmol/L LAB CHEMISTRY METHOD 04/14/2025 10:32 PM EDT [facility] CO2 28 21 - 32 mmol/L LAB CHEMISTRY METHOD 04/14/2025 10:32 PM EDT [facility] Anion Gap 4 3 - 11 LAB CHEMISTRY METHOD 04/14/2025 10:32 PM EDT [facility] Glucose 94 70 - 100 mg/dL LAB CHEMISTRY METHOD 04/14/2025 10:32 PM EDT [facility] BUN 12 5 - 25 mg/dL LAB CHEMISTRY METHOD 04/14/2025 10:32 PM EDT [facility] Creatinine 0.56 0.50 - 1.10 mg/dL LAB CHEMISTRY METHOD 04/14/2025 10:32 PM EDT [facility] eGFR 112 >=60 mL/min/1. 73m2 LAB CHEMISTRY METHOD 04/14/2025 10:32 PM EDT [facility] Comment:Calculation based on the Chronic Kidney Disease Epidemiology Collaboration (CKD-EPI) equation refit without adjustment for race. BUN/Creatinine Ratio 21.4 LAB CHEMISTRY METHOD 04/14/2025 10:32 PM EDT [facility] Calcium 9.2 8.5 - 10.5 mg/dL LAB CHEMISTRY METHOD 04/14/2025 10:32 PM T [facility] Blood Venous blood specimen / Unknown Venipuncture / Unknown 04/14/2025 9:36 PM EDT 04/14/2025 10:01 PM EDT us Abdelrahman Daniel Handy MD LAB BLOOD ORDERABLES Final Resu lt [facility] [address] [place] [address], from Last 3 Months Insurance MEDICARE [place]ICA[place]
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
== END 2025-05-05 12:07 | disposition home or self-care (01) ==
LOC: HO.HOS 11:30
PROVIDERS: Visit Provider Orthopaedic Surgery
DX: M23.306 Other meniscus derangements, unspecified meniscus, right knee (principal); M92.50 Unspecified juvenile osteochondrosis of tibia and fibula
CPT/HCPCS: 99214

== ENCOUNTER → 2025-05-05 11:29 | Outpatient (BNVA) | payer MEDICARE, MEDICAID, SELFPAY | PROVIDERS: Visit Provider Orthopaedic Surgery | DX: M23.306 Other meniscus derangements, unspecified meniscus, right knee (principal); M92.50 Unspecified juvenile osteochondrosis of tibia and fibula | CPT/HCPCS: 99212 ==

== ENCOUNTER 2025-06-01 06:14 | Day surgery (SDC) | payer MEDICARE, MEDICAID, SELFPAY ==
--- OUTSIDE RECORDS SUMMARY | 2025-05-11 12:50 | XMS_ITS | Clinical Summary ---
Author Organization [facility] Address [address] [place] [address] Phone Care Team Providers Care Doubler Helper Name Role Phone Unavailable Primary Care Provider Unavailabl e Allergies Active Allergy Reactions Criticality Noted Date Comments Aspirin Nausea And Vomiting 04/14/2025 Encounters Date Type Department Care Team Description 04/15/2025 3:14 PM EDT - 04/15/2025 6:56 PM EDT Emergency [facility] [address] [place] [address] Discharge Disposition: Left Without Being Seen from Last 3 Months Social History Tobacco Use Types Packs/Day Years Used Date Smoking Tobacco: Never Smokeless Tobacco: Never Tobacco Cessation:Counseling Given: Not Answered Education Answer Date Recorded Are you interested in more education? Not on marco antonio e 04/15/2025 Are you concerned about learning? Not on file 04/15/2025 No 04/15/2025 No 04/15/2025 Digital Access Answer Date Recorded No 04/15/2025 No 04/15/2025 Reliable internet access at home? Not on file 04/15/2025 Device with a working camera? Not on file Intimate Partner Violence Answer Date R ecorded Are you denied basic needs s uch as food, clothing, or medical care? No 04/15/2025 In the past 12 months have y ou been in a relationship with a person who hurts, threatens, or tries to control you? No 04/15/2025 Are you denied basic needs s uch as food, clothing, or medical care? No 04/15/2025 In the past 12 months have y ou been in a relationship with a person who hurts, threatens, or tries to control you? No 04/15/2025 Comments Unknown Sex and Gender Information Value Date Recorded Sex Assigned at Female 04/15/2025 3:14 PM EDT Legal Sex Female 2:58 PM EDT Gender Identity Female 04/15/2025 3:14 PM EDT Sexual Orientation Not on file Last Filed Vital Signs Vital Sign Reading Time Taken Comments Blood Pressure 123/84 04/15/2025 3:05 PM EDT Pulse 82 04/15/2025 3:05 PM EDT Temperature 36.8 C (98.2 F) 04/15/2025 3:05 PM EDT Respiratory Rate 18 04/15/2025 3:05 PM EDT Oxygen Saturation 100% 04/15/2025 3:05 PM EDT Inhaled Oxygen Concentration - - Weight 66.2 kg (146 lb) 04/15/2025 3:07 PM EDT Height 162.6 cm (5' 4 ) 04/15/2025 3:07 PM EDT Body Mass Index 25.06 04/15/2025 3:07 PM EDT Plan of Treatment Health Maintenance Due Date Last Done Comments DEPRESSION SCREENING 1987 HIV ONE-TIME SCREENING (18-65 YEARS) 1993 PAP SMEAR 1996 SMOKING STATUS SCREENING (Once After 26 Yrs) 2001 MAMMOGRAM 2015 COLOGUARD 2020 COLONOSCOPY 2020 COLORECTAL CANCER SCREENING 2020 FIT TEST 2020 FOBT 2020 SIGMOIDOSCOPY 2020 VIRTUAL COLONOSCOPY 2020 COVID-19 VACCINE (1 - 2023- season) 2024 PNEUMOCOCCAL VACCINES (50+ years) (1 of 1 - PCV) 2025 ZOSTER VACCINES (1 of 2) 2025 SCREENING FOR DIABETES 11/03/2027 11/03/2024 LIPID PANEL 07/14/2029 07/14/2024, 06/21, 03/27/2023, Additional history exists Adult Td,Tdap Booster 01/01/2032 12/31/2021, 021 HEPATITIS C SCREENING Completed 03/29/2021 HEPATITIS A VACCINES Aged Out No long er eligible based on patient's age to complete this topic HIB VACCINES Aged Out No longer eligi ble based on patient's age to complete this topic MENINGOCOCCAL VACCINES (ACWY) Aged Out No longer eligible based on patient's age to complete this topic MENINGOCOCCAL VACCINES (B) Aged Out N o longer eligible based on patient's age to complete this topic Medical Devices Not on file Additional Source Comments The information contained in this document represents components of the legal health record. It is not the complete legal health record.[facility]
--- OUTSIDE RECORDS SUMMARY | 2025-05-11 12:50 | XMS_ITS | Clinical Summary ---
Author Organization [facility] Address [address] [place] [address] Phone Care Team Providers Care Immersion Metalcleaner Name Role Phone Unavailable Primary Care Provider Unavailabl e Allergies Active Allergy Reactions Criticality Noted Date Comments Aspirin Nausea And Vomiting 04/14/2025 Encounters Date Type Department Care Team Description 04/14/2025 4:32 PM EDT - 04/15/2025 1:59 AM EDT Emergency [facility] Emergency [address] [place] [address] Discharge Disposition: Left Against Medical [...] Influencers of Health Screening 09/17/2022 COVID-19 Vaccine (3 - season) 2024 09/06/2021, 08/16/2021 Depression Screening 10/20/2024 Pneumococcal Vaccine: 50+ Years (2 of 2 - PCV) 2025 08/07/2021 Zoster Vaccines (1 of 2) 2025 Influenza Vaccine (#1) 2025 08/07/2021 Breast Cancer Screening 12/24/2025 12/25/2023 Cholesterol Screening (Lipid Panel) 07/14/2029 07/14/2024, 07/14/2024, 03/27/2023, Additional history exists DTaP,Tdap,and Td Vaccines (3 - Td or Tdap) 01/01/2032 12/31/2021, 08/07/2021 HIV Screening Completed 04/08/2019 Hepatitis C Screening Completed 03/29/2021 HIB Vaccines Aged Out No longer eligi [...] CBC auto differential (04/14/2025 9:36 PM EDT) WBC 9.2 4.8 - 10.8 K/mcL LAB HEMETOLOGY METHOD 04/14/2025 10:10 PM EDT [facility] RBC 4.70 3.80 - 4.80 M/mcL LAB HEMETOLOGY METHOD 04/14/2025 10:10 PM EDT [facility] Hemoglobin 13.1 11.5 - 16.0 g/dL LAB HEMETOLOGY METHOD 04/14/2025 10:10 PM EDT [facility] Hematocrit 41.4 35.0 - 47.0 % LAB HEMETOLOGY METHOD 04/14/2025 10:10 PM EDT [facility] MCV 89.0 79.0 - 98.0 FL LAB HEMETOLOGY METHOD 04/14/2025 10:10 PM EDT [facility] MCH 28.2 27.0 - 32.0 pcg LAB HEMETOLOGY METHOD [facility] M[facility]C 31.6(L) 32.0 - 37.0 g/dL LAB HEMETOLOGY METHOD 04/14/2025 10:10 PM EDT [facility] RDW 12.7 11.0 - 15.0 % LAB HEMETOLOGY METHOD 04/14/2025 10:10 PM EDT [facility] Platelets 304 130 - 400 K/mcL LAB HEMETOLOGY METHOD 04/14/2025 10:10 PM EDT [facility] MPV 10.6 7.0 - 11.0 FL LAB HEMETOLOGY METHOD 04/14/2025 10:10 PM EDT [facility] NRBC 0.0 <1.0 % LAB HEMETOLOGY METHOD 04/14/2025 10:10 PM EDT [facility] NRBC Absolute 0.00 <0.10 K/mcL LAB HEMETOLOGY METHOD 04/14/2025 10:10 PM EDT [facility] Neutrophils Relative 59.0 % LAB HEMETOLOGY METHOD 04/14/2025 10:10 PM EDT [facility] Lymphocytes Relative 31.5 % LAB HEMETOLOGY METHOD 04/14/2025 10:10 PM EDT [facility] Monocytes Relative 5.7 % LAB HEMETOLOGY METHOD 04/14/2025 10:10 PM EDT [facility] Eosinophils Relative 2.9 % LAB HEMETOLOGY METHOD [facility] Basophils Relative 0.3 % LAB HEMETOLOGY METHOD 04/14/2025 10:[address] [facility] Immature Granulocytes Relative 0.6 % LAB HEMETOLOGY METHOD 04/14/2025 10:[address] [facility] Neutrophils Absolute 5.44 1.50 - 7.00 K/mcL LAB HEMETOLOGY METHOD 04/14/2025 10:[address] [facility] Lymphocytes Absolute 2.91 1.00 - 5.00 K/mcL LAB HEMETOLOGY METHOD 04/14/2025 10:10 PM EDT [facility] Monocytes Absolute 0.53 0.20 - 1.00 K/mcL LAB HEMETOLOGY METHOD 04/14/2025 10:10 PM EDT [facility] Eosinophils Absolute 0.27 0.00 - 0.50 K/mcL LAB HEMETOLOGY METHOD 04/14/2025 10:[address] [facility] Basophils Absolute 0.03 0.00 - 0.20 K/mcL LAB HEMETOLOGY METHOD 04/14/2025 10:10 PM EDT [facility] Immature Granulocytes Absolute 0.06(H) 0.00 - 0.03 K/mcL LAB HEMETOLOGY METHOD 04/14/2025 10:10 PM EDT [facility] Blood Venous blood specimen / Unknown Venipuncture / Unknown 04/14/2025 9:36 PM EDT 04/14/2025 10:01 PM EDT Abdelrahman Handy MD LAB BLOOD ORDERABLES Final Resu lt [facility] [address] [place] [address], [place] [phone] * Magnesium (04/14/2025 9:36 PM EDT) Pathologist [facility] Magnesium 2.2 1.9 - 2.6 mg/dL LAB CHEMISTRY METHOD 04/14/2025 10:32 PM EDT [facility] Blood Venous blood specimen / Unknown Venipuncture / Unknown 04/14/2025 9:36 PM EDT 04/14/2025 10:01 PM EDT Abdelrahman Handy MD LAB BLOOD ORDERABLES Final Resu lt Performing Organization Address City/[facility]/ZIP Co de Phone Number [facility] [address] [place] [address], [place] [phone] * Basic metabolic panel (04/14/2025 9:36 PM EDT) Sodium 140 133 - 145 mmol/L LAB CHEMISTRY METHOD 04/14/2025 10:32 PM EDT [facility] Potassium 4.2 3.5 - 5.5 mmol/L LAB CHEMISTRY METHOD 04/14/2025 10:32 PM EDT [facility] Chloride 108 96 - 110 mmol/L LAB CHEMISTRY METHOD 04/14/2025 10:32 PM EDT [facility] CO2 28 21 - 32 mmol/L LAB CHEMISTRY METHOD 04/14/2025 10:32 PM EDT [facility] Anion Gap 4 3 - 11 LAB CHEMISTRY METHOD 04/14/2025 10:32 PM EDT [facility] Glucose 94 70 - 100 mg/dL LAB CHEMISTRY METHOD 04/14/2025 10:32 PM EDT [facility] BUN 12 5 - 25 mg/dL LAB CHEMISTRY METHOD 04/14/2025 10:32 PM EDT [facility] Creatinine 0.56 0.50 - 1.10 mg/dL LAB CHEMISTRY METHOD 04/14/2025 10:32 PM EDT [facility] eGFR 112 >=60 mL/min/1. 73m2 LAB CHEMISTRY METHOD 04/14/2025 10:32 PM EDT [facility] Comment:Calculation based on the Chronic Kidney Disease Epidemiology Collaboration (CKD-EPI) equation refit without adjustment for race. BUN/Creatinine Ratio 21.4 LAB CHEMISTRY METHOD 04/14/2025 10:32 PM EDT [facility] Calcium 9.2 8.5 - 10.5 mg/dL LAB CHEMISTRY METHOD 04/14/2025 10:32 PM T [facility] Blood Venous blood specimen / Unknown Venipuncture / Unknown 04/14/2025 9:36 PM EDT 04/14/2025 10:01 PM EDT us Abdelrahman Daniel Handy MD LAB BLOOD ORDERABLES Final Resu lt [facility] [address] [place] [address], [place] [phone] from Last 3 Months Insurance [place]ICARE [place]
[2025-05-30 09:32] VITALS: BMI 27.2
--- NOTE | 2025-05-31 10:05 | HO.ANESPROP2 ---
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 (Acute) Varus deformity of both tibias (Acute) Osteoarthritis of knees, bilateral (Acute) Headache (Acute) Limited literacy (Acute) Cognitive dysfunction (Acute) Lumbar facet arthropathy (Acute) Past Medical History Medical History Asthma Limited literacy Headache Anxiety Depression Lumbar spondylosis Surgical History Surgical History History of surgery History of skin surgery Previous back surgery H/O gastric bypass H/O knee surgery Social History Social History Patient Tobacco Use Status: Never used Tobacco Use of substances other than those prescribed or required for medical reasons: No Are you DNR?: No Advance Directives: No Advance Directives Information Provided: Yes : No Poor oral hygiene: No Current occupational status: disabled 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 Meds Allergies Allergy/AdvReac Type Severity Reaction Status Date / Time aspirin Allergy Mild Rash Verified 05/30/25 09:31 Home Medications ?Medication ?Instructions ?Recorded ?Confirmed ?Last Taken ?Type mirtazapine 15 mg tablet 15 mg PO BEDTIME 08/15/23 05/30/25 Unknown History trazodone 100 mg tablet 100 mg PO BEDTIME PRN Insomnia 08/15/23 05/30/25 Unknown History Exam Height,Weight and Vital Signs: Height 5 ft 1 in Weight 65.317 kg Assessment and Plan Assessment Anesthesia Assessment: Chart Reviewed Documented by User: Emily Melendez MD 06/01/25 07:49 PMFSH Past Medical History Medical History Asthma Limited literacy Headache Anxiety Depression Lumbar spondylosis Family History Family history of problems with anesthesia: No Surgical History Surgical History History of surgery History of skin surgery Previous back surgery H/O gastric bypass H/O knee surgery History of Problems with Anesthesia: No Social History Social History Patient Tobacco Use Status: Never used Tobacco Use of substances other than those prescribed or required for medical reasons: No Are you DNR?: No Advance Directives: No Advance Directives Information Provided: Yes : No Poor oral hygiene: No Current occupational status: disabled 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 Meds Allergies Allergy/AdvReac Type Severity Reaction Status Date / Time aspirin Allergy Mild Rash Verified 05/30/25 09:31 Home Medications ?Medication ?Instructions ?Recorded ?Confirmed ?Last Taken ?Type mirtazapine 15 mg tablet 15 mg PO BEDTIME 08/15/23 05/30/25 Unknown History trazodone 100 mg tablet 100 mg PO BEDTIME PRN Insomnia 08/15/23 05/30/25 Unknown History Exam Airway Mallampati Class: II TM Dist: >3cm Neck ROM: Full Heart: rrr Assessment and Plan Assessment Anesthesia Assessment: Anesthesia Plan Discussed Final Anesthetic Review Family History of Problems with Anesthesia: No History of Problems with Anesthesia: No NPO: Yes ASA Class: II Final Preanesthetic Review: No Changes in Pt Med Stat, Meds/Allgs Chart Reviewed, Consent Obtained/Reviewed and Anes Risks/Benef Reviewed Patient Risk: Low Procedure Risk: Low Anesthetic Plan Anesthetic Plan: GA and Agree w/ Assess. and Plan Disposition: Standard PACU
[2025-06-01] VITALS (11 sets, daily range): BP systolic 115–127; BP diastolic 68–81; PULSE 65–88; RESP 10–18; TEMP 36.1–36.4; O2SAT 95–100; BMI 28.2
[2025-06-01 06:43] LABS: UPreg QC Valid YES
[2025-06-01] MEDS: Lactated Ringers 1,000 ML 100 ML IVCONT (06:54)
--- NOTE | 2025-06-01 07:30 | MHC.SHP ---
Pre-Procedural Eval Section A - 24 Hr Update-Section A only Date of Service: 06/01/25 The patient is an INPATIENT: No Changes since office visit: No Cold of Flu in the past 2 weeks, No New Medical Problems, No Changes in Medication and No Patient answered all questions The patient has been examined within 24 hours of the surgical procedure. The History & Physical has been completed within 30 days and I have reviewed it.: Yes Section B - Complete if H&P > 30 days Chief Complaint: Complex tear of medial meniscus, current injury, Allergies: Allergies Allergy/AdvReac Type Severity Reaction Status Date / Time aspirin Allergy Mild Rash Verified 05/30/25 09:31 Plan I have reviewed the history and physical and performed a pertinent physical examination on my patient. No changes have occurred unless specified. Time Spent With Patient Time: Total time managing care of this patient today ____ minutes.
--- NOTE | 2025-06-01 08:24 | P.BOP_ITS ---
Brief Operative Note Date of Service: 06/01/25 Pre-op diagnosis: right knee MMT Post-op diagnosis: other (1) Right knee MMT 2) right knee chondromalacia G3 MFC) Procedure: Partial medial meniscectomy and chondroplasty Surgeon: aMrino Vazquez MD Anesthesia: GLMA and local Was an Exchange Engineer used for this Procedure?: No Estimated blood loss (mL): 5 Tourniquet time (min): 20 Pathology: none sent Condition: stable Disposition: PACU
--- NOTE | 2025-06-06 09:21 | P.OP_ITS ---
Operative Note Operative Note Date of Service: 06/01/25 Narrative: Date of Service: 06/01/25 Pre-op diagnosis: right knee MMT Post-op diagnosis: other (1) Right knee MMT 2) right knee chondromalacia G3 MFC) Procedure: Partial medial meniscectomy and chondroplasty Surgeon: Marino Vazquez MD Anesthesia: GLMA and local Was an Callisthenics Instructor used for this Procedure?: No Estimated blood loss (mL): 5 Tourniquet time (min): 20 Pathology: none sent Condition: stable Disposition: PACU Procedure in detail: Patient was brought to the operating room placed supine on the arthroscopic table and prepped and draped in standard sterile fashion. A time-out was called to identify proper site proper procedure proper surgeon and IV antibiotics per weight were administered. I began by exsanguinating the limb and insufflating tourniquet to 300 mm Hg. Then made a standard anterolateral stab incision. The knee was insufflated with water and 30 degree arthroscope was placed. There was grade 1 fibrillations of the patella and a small grade 3 lesion of the central portion of the trochlea. The suprapatellar pouch and the gutters were clean.. I descended into the medial compartment where I made my medial portal under direct visualization. There was tear of the posterior horn of the medial m eniscus. This was a central degenerative tear. The root was intact. I used a biter and a shaver to remove proximally 20% of the medial meniscus. The medial femoral condyle was examined and there was a large grade 2/3 chondral lesion including the majority of the weight-bearing portion of the medial femoral condyle. There was grade 1 softening in the tibial plateau but minimal. I used a combination of biter shaver and cautery to remove unstable portions medial femoral condyle cartilage. Once I was satsfied with this the ACL was examined and found to be intact. The lateral compartment was then examined with the leg in a figure 4 position. The lateral meniscus was normal. There were grade 2 chondral softening of the medial aspect of the lateral tibial plateau. I debrided this with a cautery wand and shaver as well. I then took the and knee out of the figure 4 position and internal extension debrided the chondral softening of the central portion of the trochlea with a shaver and cautery wand. I then removed all instrumentation and closed the portals with nylon. 25 mL of 2% Marcaine with epinephrine was injected into the joint and the surrounding soft tissues. Patient was then placed in sterile dressing extubated brought recovery room stable condition. There were no known complications.
== END 2025-06-01 10:43 | disposition home or self-care (01) ==
LOC: HO.SSS 06:15
PROVIDERS: Nurse Practitioner; Visit Provider Orthopaedic Surgery
PROC: (CPT 29870; principal; 2025-06-01 07:30)
DX: M23.231 Derangement of other medial meniscus due to old tear or injury, right knee (principal); M17.11 Unilateral primary osteoarthritis, right knee; M94.261 Chondromalacia, right knee; R26.89 Other abnormalities of gait and mobility; F32.A Depression, unspecified; M47.816 Spondylosis without myelopathy or radiculopathy, lumbar region; F41.9 Anxiety disorder, unspecified; Z88.6 Allergy status to analgesic agent; Z98.890 Other specified postprocedural states
CPT/HCPCS: 29881; 81025; J0131; J0165; J0690; J1100; J1885; J2003; J2250; J2405; J2704; J2795; J3010

== ENCOUNTER → 2025-06-01 06:14 | Outpatient (BNV) | payer MEDICARE, MEDICAID, SELFPAY | PROVIDERS: Visit Provider Orthopaedic Surgery | DX: S83.241A Other tear of medial meniscus, current injury, right knee, initial encounter (principal); M94.261 Chondromalacia, right knee | CPT/HCPCS: 29881 ==

== ENCOUNTER 2025-06-07 14:58 | Outpatient (AMB) | payer MEDICARE, MEDICAID, SELFPAY ==
--- NOTE | 2025-06-07 15:05 | MHC.OFFVIS ---
Intake Visit Reasons: PO RT knee 06/01/25 NE Intake Note: Katja is a 50 year old female who presents today for a post op appointment status post right partial medial meniscectomy and chondroplasty 06/01/25 NE. Patient reports she is having a lot of pain since surgery. She mentions that she is having a burning sensation. [employer]ument [employer] Services: Monument Erector Present (Miguel ([id number])) Allergies aspirin Allergy (Mild, Verified 06/07/25 15:06) Rash HPI HPI PO RT knee 06/01/25 NE: Details: Ms. Noble is a 50-year-old female who presents to the office today status post right knee arthroscopy for a partial medial meniscectomy and chondroplasty. Patient reports that she has significant swelling and pain. She is having difficulty with ambulating due to pain. On 06-06-25 the patient called the on-call service reporting that she was having constipation. Colace was prescribed however the patient was unable to obtain this. 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 Range of motion 10-90 degrees. Sutures intact. No surrounding erythema or drainage. No signs of infection. Calf is supple and nontender. NVI.. Psych Appearance: grossly normal Mental Status: mental status grossly normal Attitude: cooperative Assessment & Plan Assessment & Plan (1) Degenerative tear of meniscus of right knee: Code(s): M23.306 - Other meniscus derangements, unspecified meniscus, right knee Category: Medical Plan Ms. Noble is a 50-year-old female who presents to the office today status post right knee arthroscopy for a partial medial meniscectomy and chondroplasty. Patient reports that she has significant swelling and pain. She is having difficulty with ambulating due to pain. On 06-06-25 the patient called the on-call service reporting that she was having constipation. Colace was prescribed however the patient was unable to obtain this. While in the office today, sutures removed and Steri-Strips were applied. I again addressed constipation with the patient stating that she should obtain the Colace. If she continues to have difficulty with bowel movements magnesium citrate over the counter should be obtained. The patient was instructed that she should take the entire bottle as directed. I educated the patient on signs of blockage including the inability to pass gas. If the patient is unable to do so she should present to the emergency department immediately for evaluation. Patient demonstrates understanding and accepts. She will follow up in [address] Vazquez as she reports the next step that they discussed was a total knee arthroplasty and she is adamant about moving forward with this. Coding Level of Care Code Global (51515) Diagnoses Degenerative tear of meniscus of right knee M23.306
--- OUTSIDE RECORDS SUMMARY | 2025-06-07 16:21 | XMS_ITS | Clinical Summary ---
Author Organization [facility] Address [address] [place] [address] Care Team Providers Care Senior Chemical Engineer Name Role Phone Jamie Calderon Primary Care Provider [phone] Source Comments PLEASE NOTE, if this patient [...] Fibromyalgia 09/20/2016 Overview (02/27/2017): F/u [facility]SSP in [place] Learning disability 05/05/2014 Overview (05/10/2015): Follows at [facility], Dr Dubois. Thought to have memory loss and difficulty with retention due to learning disability as stated per Neurology Anxiety and depression 11/25/2013 Overview (02/27/2017): F/u psych at [facility] H/O bariatric surgery 09/10/2013 Overview (02/27/2017): Done in [facility] 2012 History of gestational diabetes Low back [...] 2020 Fecal DNA 2020 Flexible Sigmoidoscopy 2020 [id number] ( - season) 2024 021, 08/16/2021 Depression [...] SCANNED DOCUMENT Routine 03/23/2025 5:00 AM EDT HISTORIC MAMMOGRAM 02/17/2025 3: 00 [...] EDT Routine general medical examination at a [facility] facility from Last 3 Months or Most Recently Relevant to Health Maintenance Results * OTHER ORDERS SCANNED DOCUMENT (03/23/2025 5:00 AM EDT) Jamie PEREZ SCAN OTHER ORDERS Final Result * HISTORIC MAMMOGRAM (02/17/2025 3:00 AM EDT) 02/17/2025 3:00 AM EDT Carmine Gentile MD [facility] Final Result * HGBA1C W/MPG (11/03/2024 4:44 PM EST) HEMOGLOBIN A1C 5.6 <5.7 % of total Hgb [employer] [facility] Comment: For the purpose of screening for the presence of diabetes: <5.7% Consistent with the absence of diabetes 5.7-6.4% Consistent with increased risk for diabetes (prediabetes) > or =6.5% Consistent with diabetes This assay result is consistent with a decreased risk of diabetes. Currently, no consensus exists regarding use of hemoglobin A1c for diagnosis of diabetes in children. According to [place] Diabetes Association (ADA) guidelines, hemoglobin A1c <7.0% represents optimal control in non- diabetic patients. Different metrics may apply to specific patient populations. Standards of Medical Care in Diabetes(ADA). MEAN PLASMA GLUCOSE 122 mg/dL (calc) [facility] Blood Blood / Unknown 11/03/2024 4 :44 PM EST 11/03/2024 4:44 PM EST us Jamie PEREZ LAB - BLOOD DRAW Edited Result - Final Performing Organization Address City/[facility]/ZIP Co de Phone Number [facility] [address] [address], [facility] [address] [address] * (ABNORMAL) LIPID PANEL (07/14/2024 3:15 PM EDT) [facility] Signature CHOLESTEROL, TOTAL 212(H) <200 mg/dL [facility] HDL CHOLESTEROL 95 > OR = 50 mg/dL [facility] TRIGLYCERIDES 109 <150 mg/dL [facility] LDL-CHOLESTEROL 96 99 mg/dL (calc) [facility] Comment: Reference range: <100 Desirable range <100 mg/dL for primary prevention; <70 mg/dL for patients with CHD or diabetic patients with > or = 2 CHD risk factors. LDL-C is now calculated using the Eduard-Dima calculation, which is a validated novel method providing better accuracy than the Friedewald equation in the estimation of LDL-C. Eduard SS et al. HENRY. 2013;310(19): 6177-4118 (http://education.BookBag/faq/XEC450) CHOL/HDLC RATIO 2.2 <5.0 (calc) [facility] NON-HDL CHOLESTEROL 117 <130 mg/dL (calc) [facility] Comment: For patients with diabetes plus 1 major ASCVD risk factor, treating to a non-HDL-C goal of <100 mg/dL (LDL-C of <70 mg/dL) is considered a therapeutic option. Blood Blood / Unknown 07/14/2024 3 :15 PM EDT 07/14/2024 3:15 PM EDT us Jamie PEREZ LAB - BLOOD DRAW Final Result Performing Organization Address City/[facility]/ZIP Co de Phone Number [facility] [place] [address] [address], [facility] [address] [address] * HEPATITIS C AB W/RFLX HCV RNA, QT, RT PCR (03/29/2021 10:10 AM EDT) Pathologist [facility] HEPATITIS C ANTIBODY NON-REACT JACKIE NON-REACT JACKIE [facility] SIGNAL TO CUT-OFF 0.01 <1.00 [employer] [facility] Comment: HCV antibody was non-reactive. There is no laboratory evidence of HCV infection. In most cases, no further action is required. However, if recent HCV exposure is suspected, a test for HCV RNA (test code 64136) is suggested. For additional information please refer to http://education.SavvySync/faq/MPN12m1 (This link is being provided for informational/ educational purposes only.) Blood Blood / Unknown 03/29/2021 1 0:10 AM EDT 03/29/2021 10:13 AM EDT Richa Proctor GLOBAL CONSUMER SECTOR VICE PRESIDENT-C LAB - BLOOD DRAW Edited Resu lt - Final [facility] [address] [address], [facility] [address] [address] * HIV-1 & HIV-2 ANTIBODIES (04/08/2019 9:48 AM EDT) Pathologist [facility] HIV 1 AND 2 ANTIBODY SCREEN NEGATIVE NEGATIVE [employer] [facility] Comment: This assay is a 4th [...] AM EDT 04/08/2019 9:49 AM EDT Narrative [facility] - 04/08/2019 2:35 PM EDT [employer], a member of [facility] [address] [place] [address] [place] - Keiry Flores [place] [id number] ORD# [id number] Claudia Marcos PA-C LAB - BLOOD DRAW Final Re sult [employer]-[facility] [address] [place] [address], [place] [phone] from Last 3 Months or Most Recently Relevant to Health Maintenance Insurance [place] MEDICA[place] DENT[place] DENTAL MEDICARE - [place] MED[place] Care Teams Senior Chemical Engineer Relationship Specialty Start Date End Date Jamie Calderon PA [address] [place] [address] PCP - General [facility]ILY MEDICINECHRIS 03/03/23
--- OUTSIDE RECORDS SUMMARY | 2025-06-07 16:21 | XMS_ITS | Clinical Summary ---
Author Organization [facility] Address [address] [place] [address] Phone Care Team Providers Care Assistant Professor Of Communication Name Role Phone Unavailable Primary Care Provider Unavailabl e Allergies Active Allergy Reactions Criticality Noted Date Comments Aspirin Nausea And Vomiting 04/14/2025 Encounters Date Type Department Care Team Description 04/15/2025 3:14 PM EDT - 04/15/2025 6:56 PM EDT Emergency [facility] [address] [place] [address] Discharge Disposition: Left Without Being Seen from [...] It is not the complete legal health record.[facility]
--- OUTSIDE RECORDS SUMMARY | 2025-06-07 16:21 | XMS_ITS | Clinical Summary ---
Author Organization [facility] Address [address] [place] [address] Phone Care Team Providers Care Field Investigator Name Role Phone Unavailable Primary Care Provider Unavailabl e Allergies Active Allergy Reactions Criticality Noted Date Comments Aspirin Nausea And Vomiting 04/14/2025 Encounters Date Type Department Care Team Description 04/14/2025 4:32 PM EDT - 04/15/2025 1:59 AM EDT Emergency [facility] Emergency [address] [place] [address] Discharge Disposition: Left Against Medical [...] LAB HEMETOLOGY METHOD 04/14/2025 10:10 PM EDT [facility] RBC 4.70 3.80 - 4.80 M/mcL LAB HEMETOLOGY METHOD 04/14/2025 10:10 PM EDT [facility] Hemoglobin 13.1 11.5 - 16.0 g/dL LAB HEMETOLOGY METHOD 04/14/2025 10:10 PM EDT [facility] Hematocrit 41.4 35.0 - 47.0 % LAB HEMETOLOGY METHOD 04/14/2025 10:10 PM EDT [facility] MCV 89.0 79.0 - 98.0 FL LAB HEMETOLOGY METHOD 04/14/2025 10:10 PM EDT [facility] MCH 28.2 27.0 - 32.0 pcg LAB HEMETOLOGY [facility] MCHC 31.6(L) 32.0 - 37.0 g/dL LAB HEMETOLOGY METHOD 04/14/2025 10:10 PM EDT [facility] RDW 12.7 11.0 - 15.0 % LAB HEMETOLOGY METHOD 04/14/2025 10:10 PM EDT [facility] Platelets 304 130 - 400 K/mcL LAB HEMETOLOGY METHOD 04/14/2025 10:10 PM EDT [facility] MPV 10.6 7.0 - 11.0 FL LAB HEMETOLOGY METHOD 04/14/2025 10:10 PM EDT [facility] NRBC 0.0 <1.0 % LAB HEMETOLOGY METHOD 04/14/2025 10:10 PM EDT [facility] NRBC Absolute 0.00 <0.10 K/mcL LAB HEMETOLOGY METHOD 04/14/2025 10:10 PM EDT [facility] Neutrophils Relative 59.0 % LAB HEMETOLOGY METHOD 04/14/2025 10:10 PM EDT [facility] Lymphocytes Relative 31.5 % LAB HEMETOLOGY METHOD 04/14/2025 10:10 PM EDT [facility] Monocytes Relative 5.7 % LAB HEMETOLOGY METHOD 04/14/2025 10:10 PM EDT [facility] Eosinophils Relative 2.9 % LAB HEMETOLOGY METHOD [facility]/14[facility]25 [facility] Basophils Relative 0.3 % LAB HEMETOLOGY METHOD 04/14/2025 10:10 PM [facility] Immature Granulocytes Relative 0.6 % LAB HEMETOLOGY METHOD 04/14/2025 10:10 PM [facility] Neutrophils Absolute 5.44 1.50 - 7.00 K/mcL LAB HEMETOLOGY METHOD 04/14/2025 10:10 PM [facility] Lymphocytes Absolute 2.91 1.00 - 5.00 K/mcL LAB HEMETOLOGY METHOD 04/14/2025 10:10 PM EDT [facility] Monocytes Absolute 0.53 0.20 - 1.00 K/mcL LAB HEMETOLOGY METHOD 04/14/2025 10:10 PM EDT [facility] Eosinophils Absolute 0.27 0.00 - 0.50 K/mcL LAB HEMETOLOGY METHOD 04/14/2025 10:10 PM [facility] Basophils Absolute 0.03 0.00 - 0.20 K/mcL LAB HEMETOLOGY METHOD 04/14/2025 10:10 PM EDT [facility] Immature Granulocytes Absolute 0.06(H) 0.00 - 0.03 K/mcL LAB HEMETOLOGY METHOD 04/14/2025 10:10 PM EDT [facility] Blood Venous blood specimen / Unknown Venipuncture / Unknown 04/14/2025 9:36 PM EDT 04/14/2025 10:01 PM EDT Abdelrahman Handy MD LAB BLOOD ORDERABLES Final Resu lt [facility] [address] [place] [address], [place] [phone] * Magnesium (04/14/2025 9:36 PM EDT) Pathologist [facility] Magnesium 2.2 1.9 - 2.6 mg/dL LAB CHEMISTRY METHOD 04/14/2025 10:32 PM EDT [facility] Blood Venous blood specimen / Unknown Venipuncture / Unknown 04/14/2025 9:36 PM EDT 04/14/2025 10:01 PM EDT Abdelrahman Handy MD LAB BLOOD ORDERABLES Final Resu lt Performing Organization Address City/[facility]/ZIP Co de Phone Number [facility] [address] [place] [address], [place] [phone] * Basic metabolic panel (04/14/2025 9:36 PM EDT) Sodium 140 133 - 145 mmol/L LAB CHEMISTRY METHOD 04/14/2025 10:32 PM EDT [facility] Potassium 4.2 3.5 - 5.5 mmol/L LAB CHEMISTRY METHOD 04/14/2025 10:32 PM EDT [facility] Chloride 108 96 - 110 mmol/L LAB CHEMISTRY METHOD 04/14/2025 10:32 PM EDT [facility] CO2 28 21 - 32 mmol/L LAB CHEMISTRY METHOD 04/14/2025 10:32 PM EDT [facility] Anion Gap 4 3 - 11 LAB CHEMISTRY METHOD 04/14/2025 10:32 PM EDT [facility] Glucose 94 70 - 100 mg/dL LAB CHEMISTRY METHOD 04/14/2025 10:32 PM EDT [facility] BUN 12 5 - 25 mg/dL LAB CHEMISTRY METHOD 04/14/2025 10:32 PM EDT [facility] Creatinine 0.56 0.50 - 1.10 mg/dL LAB CHEMISTRY METHOD 04/14/2025 10:32 PM EDT [facility] eGFR 112 >=60 mL/min/1. 73m2 LAB CHEMISTRY METHOD 04/14/2025 10:32 PM EDT [facility] Comment:Calculation based on the Chronic Kidney Disease Epidemiology Collaboration (CKD-EPI) equation refit without adjustment for race. BUN/Creatinine Ratio 21.4 LAB CHEMISTRY METHOD 04/14/2025 10:32 PM EDT [facility] Calcium 9.2 8.5 - 10.5 mg/dL LAB CHEMISTRY METHOD 04/14/2025 10:32 PM T [facility] Blood Venous blood specimen / Unknown Venipuncture / Unknown 04/14/2025 9:36 PM EDT 04/14/2025 10:01 PM EDT us Abdelrahman Daniel Handy MD LAB BLOOD ORDERABLES Final Resu lt [facility] [address] [place] [address], [place] [phone] from Last 3 Months Insurance MEDICARE [place]ICA[place] - [place]
== END 2025-06-07 16:05 | disposition home or self-care (01) ==
LOC: HO.HOS 14:59
PROVIDERS: Visit Provider Physician Assistant
DX: M23.306 Other meniscus derangements, unspecified meniscus, right knee (principal)
CPT/HCPCS: 99024

== ENCOUNTER → 2025-06-07 14:58 | Outpatient (BNVA) | payer MEDICARE, MEDICAID, SELFPAY | PROVIDERS: Visit Provider Physician Assistant | DX: Z47.89 Encounter for other orthopedic aftercare (principal); Z98.890 Other specified postprocedural states; Z79.899 Other long term (current) drug therapy | CPT/HCPCS: 99212 ==

== ENCOUNTER 2025-07-11 13:10 | Outpatient (AMB) | payer MEDICARE, MEDICAID, SELFPAY ==
--- NOTE | 2025-07-11 13:12 | A.OFFVIS_ITS ---
Intake Visit Reasons: PO RT knee 06/01/25 NE Intake Note: Katja is a 50 year old female who presents today for a post op appointment status post right partial medial meniscectomy and chondroplasty 06/01/25 NE. Patient states she is having pain and swelling. She is using a RACHEL wrap to help with discomfort and some support. Allergies aspirin Allergy (Mild, Verified 07/11/25 13:16) Rash HPI HPI PO RT knee 06/01/25 NE: Details: Six weeks status post right knee arthroscopy for medial meniscus and moderate arthritic changes. She continues to have pain in both knees and swelling. 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 Trace effusion. Walking without antalgia. Assessment & Plan Assessment & Plan (1) Degenerative tear of meniscus of right knee: Code(s): M23.306 - Other meniscus derangements, unspecified meniscus, right knee Category: Medical Plan: Status post meniscectomy. She has some mild swelling and pain. Continue activity as tolerated, ice and NSAIDs. (2) Osteoarthritis of knees, bilateral: Code(s): M17.0 - Bilateral primary osteoarthritis of knee Category: Medical Plan: Varus deformity bilateral knees. Bilateral knee osteoarthritis. Coding Level of Care Code Global (04697) Diagnoses Degenerative tear of meniscus of right knee M23.306 Osteoarthritis of knees, bilateral M17.0
== END 2025-07-11 13:25 | disposition home or self-care (01) ==
LOC: HO.HOS 13:10
PROVIDERS: Visit Provider Orthopaedic Surgery
DX: M23.306 Other meniscus derangements, unspecified meniscus, right knee (principal); M17.0 Bilateral primary osteoarthritis of knee
CPT/HCPCS: 99024

== ENCOUNTER → 2025-07-11 13:10 | Outpatient (BNVA) | payer MEDICARE, MEDICAID, SELFPAY | PROVIDERS: Visit Provider Orthopaedic Surgery | DX: Z47.89 Encounter for other orthopedic aftercare (principal); M23.306 Other meniscus derangements, unspecified meniscus, right knee; M17.0 Bilateral primary osteoarthritis of knee | CPT/HCPCS: 99212 ==